=== PATIENT | female | born 1985 | race Caucasian/White ===

== ENCOUNTER 2019-07-01 12:00 | Emergency (ER) | payer OTHER ==
--- NOTE | 2019-07-01 12:18 | EDM.PDOC ---
ED HPI GENERAL MEDICAL PROBLEM - General Chief Complaint: Lower Extremity Injury/Pain Stated Complaint: PAIN IN BACK OF LEFT LEG Time Seen by Provider: 07/01/19 12:06 - History of Present Illness INITIAL COMMENTS - FREE TEXT/NARRATIVE: 34-year-old female with history that is most notable for ACL repair arthroscopically 7 weeks ago who is presenting with 2 days of left calf swelling and discomfort. She thought initially she pulled a muscle but has had now persistent symptoms and more swelling and so was concerned about potential DVT. No fevers no chills no rash patient otherwise feels quite well. The pain is moderate and worsens with ambulation. left leg Pain Score (Numeric/FACES): 1 - Related Data Allergies Allergy/AdvReac Type Severity Reaction Status Date / Time ciprofloxacin [From Cipro] Allergy Anaphylactic Verified 07/01/19 12:12 Shock Home Meds: Home Meds ARIPiprazole [Abilify Discmelt] 10 mg PO DAILY 07/01/19 [History] Chlorthalidone 25 mg PO DAILY 07/01/19 [History] Doxycycline Hyclate 100 mg PO QID 07/01/19 [History] Omeprazole 20 mg PO ACBREAKFAST 07/01/19 [History] buPROPion HCL [Bupropion HCl ER] 300 mg PO DAILY 07/01/19 [History] lisinopriL [Lisinopril] 20 mg PO DAILY 07/01/19 [History] lisinopriL [Lisinopril] 20 mg PO DAILY 07/01/19 [History] metFORMIN [Glucophage XR] 500 mg PO DAILY 07/01/19 [History] traMADol [Ultram] 50 mg PO Q6HR 07/01/19 [History] traZODone 50 mg PO DAILY 07/01/19 [History] Past Medical History HEENT History: Reports: None Cardiovascular History: Reports: Hypertension Respiratory History: Reports: None Gastrointestinal History: Reports: None Genitourinary History: Reports: None 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 Musculoskeletal History: Reports: None Neurological History: Reports: None Psychiatric History: Reports: None Endocrine/Metabolic History: Reports: Diabetes, Type II Hematologic History: Reports: None Immunologic History: Reports: None Oncologic (Cancer) History: Reports: None Dermatologic History: Reports: None - Infectious Disease History Infectious Disease History: Reports: None - Past Surgical History Head Surgeries/Procedures: Reports: None HEENT Surgical History: Reports: Adenoidectomy, Oral Surgery, Tonsillectomy Cardiovascular Surgical History: Reports: None Respiratory Surgical History: Reports: None GI Surgical History: Reports: None Female Surgical History: Reports: None Endocrine Surgical History: Reports: None Neurological Surgical History: Reports: None Musculoskeletal Surgical History: Reports: None Oncologic Surgical History: Reports: None Dermatological Surgical History: Reports: None Social & Family History - Family History Family Medical History: Noncontributory - Tobacco Use Smoking Status *Q: Current Every Day Smoker Years of Tobacco use: 20 Packs/Tins Daily: 0.5 - Caffeine Use Caffeine Use: Reports: Coffee, Energy Drinks - Recreational Drug Use Recreational Drug Use: No Review of Systems - Review of Systems Review Of Systems: Comprehensive ROS is negative, except as noted in HPI. ED EXAM, GENERAL - Physical Exam Exam: See Below Free Text/Narrative:: General Appearance: No acute distress, appears comfortable Skin: No rash HEENT: Normocephalic/atraumatic, sclera anicteric, mucous membranes moist Neck: Normal range of motion Back: Normal Musculoskeletal: 2+ bilateral DP pulses left calf somewhat swollen compared to the right and tender posteriorly arthroscopic incisions clean dry and intact appear to be healing well range of motion of the knee is normal no swelling of the knee joint no erythema surrounds the knee. Extremity is neurovascularly intact there is no focal bony tenderness. There is no skin change that would suggest a cellulitis. There are no findings on the anterior wong. With the exception of some persistent numbness over the proximal anterior wong that the patient states is stable since the surgery. Neurologic: Awake, alert, no obvious deficits, moving all extremities Psychiatric: Appropriate, cooperative Course - Vital Signs Last Recorded V/S: Last Vital Signs Temp 97.0 F 07/01/19 12:09 Pulse 92 07/01/19 12:09 Resp 18 07/01/19 12:09 BP 154/84 H 07/01/19 12:09 Pulse Ox 99 07/01/19 12:09 - Orders/Labs/Meds Labs: Laboratory Tests 07/01/19 07/01/19 07/01/19 Range/Units 12:43 12:43 12:43 WBC 11.11 H (4.0-11.0) K/uL RBC 4.86 (4.30-5.90) M/uL Hgb 14.2 (12.0-16.0) g/dL Hct 42.4 (36.0-46.0) % MCV 87.2 (80.0-98.0) fL MCH 29.2 (27.0-32.0) pg MCHC 33.5 (31.0-37.0) g/dL RDW Std Deviation 42.5 (28.0-62.0) fl RDW Coeff of Roman 13 (11.0-15.0) % Plt Count 325 (150-400) K/uL MPV 9.60 (7.40-12.00) fL Neut % (Auto) 65.2 (48.0-80.0) % Lymph % (Auto) 27.8 (16.0-40.0) % Gage % (Auto) 6.1 (0.0-15.0) % Eos % (Auto) 0.7 (0.0-7.0) % Baso % (Auto) 0.2 (0.0-1.5) % Neut # (Auto) 7.2 H (1.4-5.7) K/uL Lymph # (Auto) 3.1 H (0.6-2.4) K/uL Gage # (Auto) 0.7 (0.0-0.8) K/uL Eos # (Auto) 0.1 (0.0-0.7) K/uL Baso # (Auto) 0.0 (0.0-0.1) K/uL Nucleated RBC % 0.0 /100WBC Nucleated RBCs # 0 K/uL D-Dimer, Quantitative 0.63 H (0.0-0.50) mg/L FEU Sodium 136 (136-145) mmol/L Potassium 3.7 (3.5-5.1) mmol/L Chloride 99 (98-107) mmol/L Carbon Dioxide 27.5 (21.0-32.0) mmol/L BUN 13 (7.0-18.0) mg/dL Creatinine 0.9 (0.6-1.0) mg/dL Est Cr Clr Drug Dosing 82.45 mL/min Estimated GFR (MDRD) > 60.0 ml/min Glucose 98 (74-106) mg/dL Calcium 9.2 (8.5-10.1) mg/dL Departure - Departure Time of Disposition: 14:32 Disposition: Home, Self-Care 01 Condition: Good Clinical Impression: Strain of calf muscle - Discharge Information Instructions: Muscle Strain, [id number] Referrals: PCP,Not In Area [Primary Care Provider] - Forms: ED Department Discharge Additional Instructions: As we discussed your ultrasound test is negative for blood clot. However, your screening blood test was abnormal. This does not necessarily mean that you have a blood clot. I think it is much more likely that you have a muscle strain. However, it is recommended that you get another ultrasound of your leg to exclude blood clot in 2 weeks. This can be scheduled through your primary care doctor. The following information is given to patients seen in the emergency department who are being discharged to home. This information is to outline your options for follow-up care. We provide all patients seen in our emergency department with a follow-up referral. The need for follow-up, as well as the timing and circumstances, are variable depending upon the specifics of your emergency department visit. If you don't have a primary care physician on staff, we will provide you with a referral. We always advise you to contact your personal physician following an emergency department visit to inform them of the circumstance of the visit and for follow-up with them and/or the need for any referrals to a consulting specialist. The emergency department will also refer you to a specialist when appropriate. This referral assures that you have the opportunity for follow-up care with a specialist. All of these measure are taken in an effort to provide you with optimal care, which includes your follow-up. Under all circumstances we always encourage you to contact your private physician who remains a resource for coordinating your care. When calling for follow-up care, please make the office aware that this follow-up is from your recent emergency room visit. If for any reason you are refused follow-up, please contact the [facility] Emergency Department at and asked to speak to the emergency department charge nurse. Sepsis Event Note - Evaluation Sepsis Screening Result: No Definite Risk - Focused Exam Vital Signs: Vital Signs Temp Pulse Resp BP Pulse Ox 07/01/19 12:09 97.0 F 92 18 154/84 H 99 Date Exam was Performed: 07/01/19 Time Exam was Performed: 14:31 - Assessment/Plan Assessment:: 34-year-old female presenting with left leg pain and swelling DVT is a consideration muscle strain or consideration no concern for cellulitis no concern for deep space infection no concern for septic arthritis. Other etiologies considered as well CBC BMP to assess for any contraindications anticoagulation d-dimer and ultrasound to help therapy selection. D-dimer mildly positive ultrasound is negative likely muscle strain patient will need repeat ultrasound in 2 weeks this was discussed and understood. Patient states that she can schedule that through her primary care provider.
[2019-07-01 13:09] LABS: BLOOD UREA NITROGEN,BUN 13 mg/dL (7.0-18.0); CARBON DIOXIDE,CO2 27.5 mmol/L (21.0-32.0); CHLORIDE,CL 99 mmol/L (98-107); GLUCOSE RANDOM 98 mg/dL (74-106); POTASSIUM,K 3.7 mmol/L (3.5-5.1); SODIUM,NA 136 mmol/L (136-145)
--- NOTE | 2019-07-01 14:00 | US ---
Left lower extremity deep venous ultrasound: Duplex and color Doppler evaluation was obtained of the left common femoral, proximal greater saphenous, superficial femoral, popliteal, posterior tibial and peroneal veins. Anterior tibial vein also evaluated. Findings: Normal compression and blood flow are seen within the veins. Impression: 1. No evidence of deep venous thrombosis is seen within the left lower extremity. Diagnostic code #1 This report was dictated in MDT
== END 2019-07-01 14:52 | disposition home or self-care (01) ==
LOC: MW.ED 12:00
DX: S86.912A Strain of unspecified muscle(s) and tendon(s) at lower leg level, left leg, initial encounter (principal); E11.9 Type 2 diabetes mellitus without complications; F17.210 Nicotine dependence, cigarettes, uncomplicated; Z79.84 Long term (current) use of oral hypoglycemic drugs; Z88.1 Allergy status to other antibiotic agents; Z79.899 Other long term (current) drug therapy; X50.9XXA Other and unspecified overexertion or strenuous movements or postures, initial encounter
CPT/HCPCS: 36415; 80048; 85025; 85379; 93971-26-LT; 93971-LT; 99283; 99284-25